=== PATIENT | female | born 1995 | race African-American/Black ===

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

== ENCOUNTER 2017-01-24 19:45 | Emergency (ER) | payer OTHER ==
[2017-01-24] MEDS ORDERED: Mupirocin 2% OINT* TUBE TOPICAL ONE (20:34)
--- NOTE | 2017-01-24 21:08 | ED ---
Skin Complaint - HPI Summary HPI Summary: Patient presents with oil burn to the left dorsum of the thumb x 3 hours ago. She has experienced superficial tejada in the past, but this is the first which has created a blister. She notes to some pain. Denies discoloration over the wound. She has not tried anything for it, and nothing has made it better or worse. She ran cold water over the wound for 5 minutes prior to coming to the ED. The area measures 1x2cm. - History of Current Complaint Chief Complaint: EDBurnSmokeInh Time Seen by Provider: 01/24/17 19:52 Stated Complaint: BURN ON LT HAND Hx Obtained From: Patient Onset/Duration: Started Hours Ago Skin Exposure Onset/Duration: Hours Ago Timing: Constant Onset Severity: Mild Current Severity: Mild Pain Intensity: 4 Pain Scale Used: 0-10 Numeric Skin Location: Hand Character: Exposure to Cold Continuous, Swelling, Redness, Raised, Painful Aggravating Symptom(s): Touch Alleviating Symptom(s): Nothing Associated Signs & Symptoms: Negative Related History: Possible Reaction to: Environmental Exposure - Allergy/Home Medications Allergies/Adverse Reactions: Allergies Allergy/AdvReac Type Severity Reaction Status Date / Time seasonal Allergy Eyes Uncoded 01/24/17 19:48 Itchy/Swollen/Red/Watery PMH/Surg Hx/FS Hx/Imm Hx Previously Healthy: Yes Respiratory History: Reports: Hx Asthma, Hx Seasonal Allergies - Immunization History Hx Pertussis Vaccination: No Immunizations Up to Date: Unable to Obtain/Confirm Infectious Disease History: No Infectious Disease History: Denies: Traveled Outside the [place] in Last 30 Days - Social History Occupation: Unemployed Lives: Alone Alcohol Use: None Hx Substance Use: No Substance Use Type: Reports: None Hx Tobacco Use: No Smoking Status (MU): Never Smoked Tobacco Review of Systems Constitutional: Negative Eyes: Negative Cardiovascular: Negative Gastrointestinal: Negative Genitourinary: Negative Positive: no symptoms reported, see HPI Musculoskeletal: Negative Positive: Other - 1x2 cm blister overlying the dorsum of the left thumb Neurological: Negative Psychological: Normal All Other Systems Reviewed And Are Negative: Yes Physical Exam Triage Information Reviewed: Yes Vital Signs On Initial Exam: Initial Vitals Temp Pulse Resp BP Pulse Ox 98.9 F 100 16 122/65 98 01/24/17 19:49 01/24/17 19:49 01/24/17 19:49 01/24/17 19:49 01/24/17 19:49 Vital Signs Reviewed: Yes Appearance: Positive: Well-Appearing, Well-Nourished Skin: Positive: Warm, Skin Color Reflects Adequate Perfusion, Other - 1x2 cm blister overlying the dorsum of the left thumb Head/Face: Positive: Normal Head/Face Inspection Eyes: Positive: EOMI, MIKAYLA, Conjunctiva Clear Neck: Positive: Supple, No Lymphadenopathy Respiratory/Lung Sounds: Positive: Clear to Auscultation, Breath Sounds Present Cardiovascular: Positive: Normal, RRR, Pulses are Symmetrical in both Upper and Lower Extremities Musculoskeletal: Positive: Normal, Strength/ROM Intact Neurological: Positive: Speech Normal Psychiatric: Positive: Normal Diagnostics - Vital Signs Vital Signs Temp Pulse Resp BP Pulse Ox 01/24/17 19:49 98.9 F 100 16 122/65 98 - Laboratory Lab Statement: Any lab studies that have been ordered have been reviewed, and results considered in the medical decision making process. Course/Dx - Course Course Of Treatment: 1x2 cm blister overlying the dorsum of the left thumb after oil burn. The burn is not circumferential. She has some pain overlying the wound. Triple antibiotic ointment and telfa dressing covering wound. She is given care instructions and she is OK for discharge. - Differential Diagnoses - Skin Complaint Differential Diagnoses: Other - burn, superficial wound, first degree burn - Diagnoses Provider Diagnoses: Burn blister with epidermal loss Discharge - Discharge Plan Condition: Stable Disposition: HOME Patient Education Materials: Superficial Burn (ED) Referrals: [facility] [Primary Care Provider] - Additional Instructions: May get the area wet Place bactroban over the area prior to bandage Keep a bandage over the area for 3 days Do not try to pop the blister.
[2017-01-24 21:30] VITALS: BP 99/67
== END 2017-01-24 21:29 | disposition home or self-care (01) ==
LOC: ED 19:45
DX: T23.112A Burn of first degree of left thumb (nail), initial encounter (principal); T31.0 Burns involving less than 10% of body surface; X10.2XXA Contact with fats and cooking oils, initial encounter; Y93.9 Activity, unspecified; Y92.9 Unspecified place or not applicable
CPT/HCPCS: 99282